=== PATIENT | female | born 1980 | race Asian ===

== ENCOUNTER → 2017-04-15 | Outpatient (CLI) | payer SELFPAY ==
[~2017-04-15] MED LIST: PREN1TAB29
== END | disposition home or self-care (01) ==
LOC: C.PAPS 08:39
PROVIDERS: ATTEND Physician Assistant
DX: Z01.419 Encounter for gynecological examination (general) (routine) without abnormal findings (principal)

== ENCOUNTER → 2017-04-26 | Outpatient (CLI) | payer BC ==
--- NOTE | 2017-04-26 14:12 | MAMMOGRAPHY REPORT ---
BILATERAL DIGITAL DIAGNOSTIC MAMMOGRAM TOMOSYNTHESIS WITH CAD: 04/26/2017 CLINICAL HISTORY: The patient reports left nipple discomfort/tingling approximately [address] 3 months. She stopped breast-feeding approximately 3-4 months before the symptoms started. She d enies any nipple discharge, palpable lump, or nipple skin changes. TECHNIQUE: Breast tomosynthesis in addition to standard 2D mammography was performed. Current study was also evaluated with a Computer Aided Detection (CAD) system. Bilateral CC and MLO 2-D and tomosy nthesis images were obtained. COMPARISON: No prior exams were available for comparison. BREAST COMPOSITION: There are scattered areas of fibroglandular density in both breasts. FINDINGS: There are no suspicious masses, calcifications, or areas of architectural distortion noted within either breast mammographically. Ultrasound was not performed of the left subareolar breast due to patient request due to insurance co ncerns. IMPRESSION: ACR BI-RADS CATEGORY 1: NEGATIVE There is no mammographic evidence of malignancy in either breast. Note that ultrasound was not perfo rmed due to patient request. Recommend clinical follow-up for intermittent left nipple discomfort/ti ngling. Also recommend routine bilateral screening mammograms starting at age of 40 unless otherwise clinically indicated. The patient has been verbally notified of the results. Approximately 10% of breast cancers are not detected with mammography. A negative mammographic report should not delay biopsy if a clinically suggestive mass is present. Linda Britton M.D. ah/:04/26/2017 11:48:04 Fruit Picker: Jina [email or web address])(Karis), [facility] letter sent: Normal 1/2 BI-RADS Code: ACR BI-RADS Category 1: Negative
== END | disposition home or self-care (01) ==
LOC: C.MAMM 11:13
PROVIDERS: ATTEND Physician Assistant
DX: N64.59 Other signs and symptoms in breast (principal)